=== PATIENT | female | born 1990 | race Two or more races ===

== ENCOUNTER → 2019-07-26 | Outpatient (CLI) | payer OTHER | END | disposition home or self-care (01) | LOC: PRENATAL 10:26 | DX: O34.31 Maternal care for cervical incompetence, first trimester (principal); O36.80X1 Pregnancy with inconclusive fetal viability, fetus 1; O09.291 Supervision of pregnancy with other poor reproductive or obstetric history, first trimester ==

== ENCOUNTER → 2019-08-10 16:08 | Outpatient (CLI) | payer OTHER | END | disposition home or self-care (01) | LOC: LAB 16:08 | DX: O09.892 Supervision of other high risk pregnancies, second trimester (principal); Z36.0 Encounter for antenatal screening for chromosomal anomalies ==

== ENCOUNTER → 2019-08-10 | Outpatient (CLI) | payer OTHER ==
[~2019-08-10] MED LIST: ZOVIRAX400 M1
== END | disposition home or self-care (01) ==
LOC: PRENATAL 09:30
DX: O26.851 Spotting complicating pregnancy, first trimester (principal); O34.41 Maternal care for other abnormalities of cervix, first trimester; O36.80X1 Pregnancy with inconclusive fetal viability, fetus 1; O34.31 Maternal care for cervical incompetence, first trimester

== ENCOUNTER 2019-08-20 11:45 | Day surgery (SDC) | payer OTHER | END 2019-08-20 23:40 | disposition home or self-care (01) | LOC: CIR.AMB 11:45 | DX: O34.31 Maternal care for cervical incompetence, first trimester (principal) ==

== ENCOUNTER → 2019-09-14 | Emergency (ER) | payer OTHER ==
[~2019-09-14] VITALS: Ht 157.5 cm; Wt 59.0 kg
== END | disposition left against medical advice (07) ==
LOC: ER 16:23
DX: O26.892 Other specified pregnancy related conditions, second trimester (principal); S39.012A Strain of muscle, fascia and tendon of lower back, initial encounter; Z34.02 Encounter for supervision of normal first pregnancy, second trimester; X50.9XXA Other and unspecified overexertion or strenuous movements or postures, initial encounter; Y93.89 Activity, other specified; Y92.69 Other specified industrial and construction area as the place of occurrence of the external cause; Y99.8 Other external cause status

== ENCOUNTER → 2019-09-19 | Outpatient (CLI) | payer OTHER | END | disposition home or self-care (01) | LOC: PRENATAL 12:03 | DX: O99.89 Other specified diseases and conditions complicating pregnancy, childbirth and the puerperium (principal); O34.32 Maternal care for cervical incompetence, second trimester; O34.42 Maternal care for other abnormalities of cervix, second trimester; O35.3XX0 Maternal care for (suspected) damage to fetus from viral disease in mother, not applicable or unspecified ==

== ENCOUNTER → 2019-12-26 | Outpatient (CLI) | payer OTHER ==
[~2019-12-26] MED LIST changes: +FLAGYL500MG PO; +MACROBID 100 M100 MG PO; +PRENATAL CAPLE1 EAC1 PO; +PROGESTERO50 MG/1 ML IM
== END | disposition home or self-care (01) ==
LOC: PRENATAL 09:00
DX: O26.843 Uterine size-date discrepancy, third trimester (principal); O99.89 Other specified diseases and conditions complicating pregnancy, childbirth and the puerperium; O34.33 Maternal care for cervical incompetence, third trimester; O34.43 Maternal care for other abnormalities of cervix, third trimester; O09.293 Supervision of pregnancy with other poor reproductive or obstetric history, third trimester; O36.8130 Decreased fetal movements, third trimester, not applicable or unspecified

== ENCOUNTER 2019-12-31 18:19 | Outpatient (CLI) | payer OTHER ==
[~2019-12-31 18:19] MED LIST changes: -FLAGYL500MG PO; -MACROBID 100 M100 MG PO; -PRENATAL CAPLE1 EAC1 PO; -PROGESTERO50 MG/1 ML IM
[2019-12-31] MEDS ORDERED: PRENATAL CAPLE1 EAC1 PO (18:34)
[2019-12-31] MEDS ORDERED: MACROBID 100 M100 MG PO (18:36)
[2019-12-31] MEDS ORDERED: PROGESTERO50 MG/1 ML IM (18:41)
[2020-01-01] MEDS ORDERED: FLAGYL500MG PO (17:47)
== END 2020-01-01 18:14 | disposition home or self-care (01) ==
LOC: OBS/DEL 18:19
DX: O26.893 Other specified pregnancy related conditions, third trimester (principal); O26.853 Spotting complicating pregnancy, third trimester; O34.33 Maternal care for cervical incompetence, third trimester; O36.8191 Decreased fetal movements, unspecified trimester, fetus 1; R10.2 Pelvic and perineal pain; O46.8X3 Other antepartum hemorrhage, third trimester

== ENCOUNTER 2020-02-11 11:29 | Inpatient (IN) | payer OTHER ==
[~2020-02-11] VITALS: Ht 154.9 cm; Wt 71.2 kg
[~2020-02-11 11:29] MED LIST changes: +FLAGYL500MG PO; +MACROBID 100 M100 MG PO; +PRENATAL CAPLE1 EAC1 PO; +PROGESTERO50 MG/1 ML IM
[2020-02-12] MEDS ORDERED: VALACYCLOVIR500 MG (08:05)
[2020-02-12] MEDS ORDERED: MACRODANTIN100 M1 (08:05)
== END 2020-02-14 13:26 | disposition home or self-care (01) | DRG 806 ==
LOC: OB/GYN 11:29 → LDR 11:29 → OB/GYN 02-12 08:35
PROVIDERS: ADMIT Obstetrics & Gynecology
PROC: 10E0XZZ Delivery of Products of Conception, External Approach (ICD-10-PCS; principal; 2020-02-11)
PROC: 0KQM0ZZ Repair Perineum Muscle, Open Approach (ICD-10-PCS; 2020-02-11)
PROC: 10907ZC Drainage of Amniotic Fluid, Therapeutic from Products of Conception, Via Natural or Artificial Opening (ICD-10-PCS; 2020-02-11)
PROC: 3E0P7VZ Introduction of Hormone into Female Reproductive, Via Natural or Artificial Opening (ICD-10-PCS; 2020-02-11)
PROC: 3E033VJ Introduction of Other Hormone into Peripheral Vein, Percutaneous Approach (ICD-10-PCS; 2020-02-11)
PROC: 4A1HXCZ Monitoring of Products of Conception, Cardiac Rate, External Approach (ICD-10-PCS; 2020-02-11)
DX: O70.1 Second degree perineal laceration during delivery (principal); O41.03X0 Oligohydramnios, third trimester, not applicable or unspecified; Z37.0 Single live birth; Z3A.38 38 weeks gestation of pregnancy